=== PATIENT | male | born 1980 | race Caucasian/White ===

== ENCOUNTER 2020-04-17 18:11 | Emergency (ER) | payer SELFPAY ==
[~2020-04-17] VITALS: Ht 177 cm; Wt 80.0 kg
[2020-04-17] MEDS ORDERED: LACTATED RINGERS 1,000 ML IV ONE (18:18)
[2020-04-17] MEDS ORDERED: KETOROLAC 30 MG/ML VIAL IVP STA (18:18)
--- NOTE | 2020-04-17 18:26 | ED GU-Male ---
General Stated Complaint: R TESTICLE PAIN/SWELLING Source: patient History of Present Illness Date Seen by Provider: Apr 17, 2020 Time Seen by Provider: 18:14 Initial Comments PT ARRIVES VIA POV C/O PAIN IN RIGHT TESTICLE, RLQ AND RIGHT FLANK X 3-4 DAYS STATES MOST PAIN IS IN RIGHT FLANK AND FEELS LIKE ALOT OF PRESSURE, ALSO FEELS ALOT OF PRESSURE OVER BLADDER STATES HIS RIGHT TESTICLE HAS BEEN SWOLLEN AND HARD FOR THE LAST 4 DAYS PAIN WAXES AND WANES, BUT NOTHING WORSENS OR IMPROVES PAIN RATES PAIN 10/10 NOW C/O NAUSEA, NO VOMITING NO DIARRHEA. HAD BM TODAY--VERY CONSTIPATED/HARD NO PROBLEMS URINATING OR CHANGE IN COLOR OF URINE NO FEVER, BUT IS SHIVERING HAS NOT TAKEN ANYTHING FOR PAIN HAD SIMILAR A COUPLE OF MONTHS AGO,AND ALSO ABOUT A YEAR AGO--CLAIMS EACH TIME IT WENT AWAY WITH ANTIBIOTICS PCP: DARNELL PSYCH: [facility] Allergies and Home Medications Allergies Coded Allergies: No Known Drug Allergies (Unverified , 04/17/20) Home Medications Doxycycline Hyclate 100 Mg Tablet, 100 MG PO BID Prescribed by: REANNA PELLETIER on 04/17/201941 Ketorolac Tromethamine 10 Mg Tablet, 10 MG PO Q6H Prescribed by: REANNA PELLETIER on 04/17/201941 Ondansetron 4 Mg Tab.rapdis, 4 MG PO Q4H Prescribed by: REANNA PELLETIER on 04/17/201941 Patient Home Medication List Home Medication List Reviewed: Yes Review of Systems Review of Systems Constitutional: No fever; other (SHIVERING) Respiratory: no symptoms reported Cardiovascular: no symptoms reported Gastrointestinal: see HPI, abdominal pain, constipation; No diarrhea; nausea; No vomiting Genitourinary: denies burning, denies dysuria, denies frequency; flank pain; denies hematuria, denies pain Musculoskeletal: see HPI, back pain Skin: no symptoms reported Psychiatric/Neurological: No Symptoms Reported Endocrine: No Symptoms Reported Hematologic/Lymphatic: No Symptoms Reported Past Tuspqji-Cpfvlp-Qcoqeu Hx Past Med/Social Hx: Reviewed and Corrections made Patient Social History Alcohol Use: Regular Use (AT LEAST 1/2 PINT OF LIQUOR / WEEK) Recreational Drug Use: Yes (DAILY METH--HX OF IV USE, NOW SMOKES IT. THC USE) Drug of Choice: DAILY METH USE--HX OF IV USE, NOW SMOKES IT. THC USE Smoking Status: Current Everyday Smoker (1/2 PPD) Recent Foreign Travel: No Contact w/Someone Who Travel: No Past Medical History Surgeries: No Respiratory: Yes (NO MEDICATIONS) COPD Cardiac: No Neurological: No Genitourinary: No Gastrointestinal: No Musculoskeletal: No Endocrine: No HEENT: No Cancer: No Psychosocial: Yes (EXTENSIVE PSYCH ISSUES, SUBSTANCE ABUSE) Anxiety, Bipolar, Personality Disorder, Schizophrenia, Depression Integumentary: No Blood Disorders: No Physical Exam Vital Signs Vital Signs - First Documented 04/17/20 18:14 Temp 36.2 Pulse 99 Resp 18 B/P (MAP) 110/92 (98) Pulse Ox 99 O2 Delivery Room Air Capillary Refill : Height, Weight, BMI Height: '" Weight: lbs. oz. kg; BMI Method: General Appearance: WD/WN, no apparent distress, other (SHIVERING; DIRTY MALODOROUS) Cardiovascular: regular rate, rhythm, no murmur Respiratory: normal breath sounds, no respiratory distress, no accessory muscle use Gastrointestinal: normal bowel sounds, soft, no organomegaly, no pulsatile mass, tenderness (SUPRAPUBIC, RLQ AND RIGHT FLANK TENDERNESS--MOST TENDER IN R IGHT FLANK) Male: no hernia; No inguinal tenderness; testicular tenderness, other (RIGHT TESTICLE MODERATELY SWOLLEN, VERY FIRM AND VERY TENDER, NO ERYTHEMA OR DISCOLORATION. NO SORES/LESIONS. FEW SMALL RIGHT INGUINAL LYMPH NODES PALPABLE. ) Back: CVA tenderness (R) (VERY TENDER) Extremities: normal inspection, normal capillary refill Neurologic/Psychiatric: training project manager II-XII nml as tested, no motor/sensory deficits, alert, oriented x 3 Skin: normal color, warm/dry; No rash Progress/Results/Core Measures Suspected Sepsis SIRS Temperature: Pulse: Respiratory Rate: Laboratory Tests 04/17/20 18:20: White Blood Count 18.5H Blood Pressure / Mean: Laboratory Tests 04/17/20 18:20: Creatinine 1.15, Platelet Count 306, Total Bilirubin 0.4 Results/Orders Lab Results Laboratory Tests Test 04/17/20 18:20 04/17/20 19:11 Range/Units White Blood Count 18.5 H 4.3-11.0 10^3/uL Red Blood Count 4.79 4.30-5.52 10^6/uL Hemoglobin 15.1 13.3-17.7 g/dL Hematocrit 45 40-54 % Mean Corpuscular Volume 93 80-99 fL Mean Corpuscular Hemoglobin 32 25-34 pg Mean Corpuscular Hemoglobin Concent 34 32-36 g/dL Red Cell Distribution Width 12.8 10.0-14.5 % Platelet Count 306 130-400 10^3/uL Mean Platelet Volume 8.6 L 9.0-12.2 fL Immature Granulocyte % (Auto) 0 % Neutrophils (%) (Auto) 79 H 42-75 % Lymphocytes (%) (Auto) 12 12-44 % Monocytes (%) (Auto) 8 0-12 % Eosinophils (%) (Auto) 0 0-10 % Basophils (%) (Auto) 0 0-10 % Neutrophils # (Auto) 14.6 H 1.8-7.8 10^3/uL Lymphocytes # (Auto) 2.3 1.0-4.0 10^3/uL Monocytes # (Auto) 1.5 H 0.0-1.0 10^3/uL Eosinophils # (Auto) 0.1 0.0-0.3 10^3/uL Basophils # (Auto) 0.1 0.0-0.1 10^3/uL Immature Granulocyte # (Auto) 0.1 0.0-0.1 10^3/uL Neutrophils % (Manual) 76 % Lymphocytes % (Manual) 8 % Monocytes % (Manual) 9 % Eosinophils % (Manual) 1 % Basophils % (Manual) 0 % Band Neutrophils 2 % Reactive Lymphocytes 4 % Blood Morphology Comment NORMAL Sodium Level 136 135-145 MMOL/L Potassium Level 3.9 3.6-5.0 MMOL/L Chloride Level 99 98-107 MMOL/L Carbon Dioxide Level 24 21-32 MMOL/L Anion Gap 13 5-14 MMOL/L Blood Urea Nitrogen 12 7-18 MG/DL Creatinine 1.15 0.60-1.30 MG/DL Estimat Glomerular Filtration Rate > 60 BUN/Creatinine Ratio 10 Glucose Level 153 H 70-105 MG/DL Calcium Level 9.5 8.5-10.1 MG/DL Corrected Calcium 8.5-10.1 MG/DL Total Bilirubin 0.4 0.1-1.0 MG/DL Aspartate Amino Transf (AST/SGOT) 14 5-34 U/L Alanine Aminotransferase (ALT/SGPT) 21 0-55 U/L Alkaline Phosphatase 76 40-136 U/L Total Protein 8.4 H 6.4-8.2 GM/DL Albumin 4.6 H 3.2-4.5 GM/DL Amylase Level 32 25-125 U/L Lipase 22 8-78 U/L Serum Alcohol < 10 <10 MG/DL Urine Color YELLOW Urine Clarity CLEAR Urine pH 5.5 5-9 Urine Specific Painter >=1.030 1.016-1.022 Urine Protein 1+ H NEGATIVE Urine Glucose (UA) NEGATIVE NEGATIVE Urine Ketones NEGATIVE NEGATIVE Urine Nitrite NEGATIVE NEGATIVE Urine Bilirubin NEGATIVE NEGATIVE Urine Urobilinogen 0.2 < = 1.0 MG/DL Urine Leukocyte Esterase 1+ H NEGATIVE Urine RBC (Auto) TRACE-I NEGATIVE Urine RBC RARE /HPF Urine WBC 50-100 H /HPF Urine Squamous Epithelial Cells RARE /HPF Urine Crystals NONE /LPF Urine Bacteria FEW H /HPF Urine Casts NONE /LPF Urine Mucus MODERATE H /LPF Urine Other FEW SPERM H /HPF Urine Culture Indicated YES Urine Opiates Screen NEGATIVE NEGATIVE Urine Oxycodone Screen NEGATIVE NEGATIVE Urine Methadone Screen NEGATIVE NEGATIVE Urine Propoxyphene Screen NEGATIVE NEGATIVE Urine Barbiturates Screen NEGATIVE NEGATIVE Ur Tricyclic Antidepressants Screen NEGATIVE NEGATIVE Urine Phencyclidine Screen NEGATIVE NEGATIVE Urine Amphetamines Screen POSITIVE H NEGATIVE Urine Methamphetamines Screen POSITIVE H NEGATIVE Urine Benzodiazepines Screen NEGATIVE NEGATIVE Urine Cocaine Screen NEGATIVE NEGATIVE Urine Cannabinoids Screen POSITIVE H NEGATIVE My Orders Orders - REANNA PELLETIER DO Ed Iv/Invasive Line Start (04/17/20 18:18) Ct Abd/Pelvis Wo(Kidney Stone) (04/17/20 18:18) Acute Abd Series (04/17/20 18:18) Alcohol (04/17/20 18:18) Amylase (04/17/20 18:18) Cbc With Automated Diff (04/17/20 18:18) Comprehensive Metabolic Panel (04/17/20 18:18) Drug Screen Stat (Urine) (04/17/20 18:18) Lipase (04/17/20 18:18) Ua Culture If Indicated (04/17/20 18:18) Ed Iv/Invasive Line Start (04/17/20 18:18) Lactated Ringers (Lr 1000 Ml Iv Solution (04/17/20 18:18) Ondansetron Injection (Zofran Injectio (04/17/20 18:30) Ketorolac Injection (Toradol Injection) (04/17/20 18:18) Manual Differential (04/17/20 18:20) Urine Culture (04/17/20 19:11) Neis Simba Dna Urine Test (04/17/20 19:23) Chlamydia Trachomatis Urine (04/17/20 19:23) Ceftriaxone For Iv Use (Rocephin For I (04/17/20 19:30) Azithromycin Tablet (Zithromax Tablet) (04/17/20 19:30) Ceftriaxone For Im Use (Rocephin For Im (04/17/20 20:00) Lidocaine 1% Inj 20 Ml (Xylocaine 1% Inj (04/17/20 20:00) Medications Given in ED Current Medications Medications Dose Ordered Sig/Garret Route Start Time Stop Time Status Last Admin Dose Admin Lactated Ringer's 1,000 ml @ 0 mls/hr Q0M ONCE IV 04/17/20 18:18 04/17/20 18:21 DC 04/17/20 18:33 1,000 MLS/HR Lidocaine HCl 2.1 ml ONCE ONCE INJ 04/17/20 20:00 04/17/20 20:01 DC 04/17/20 20:04 2.1 ML Ondansetron HCl 4 mg ONCE ONCE IVP 04/17/20 18:30 04/17/20 18:31 DC 04/17/20 18:33 4 MG Vital Signs/I&O 04/17/20 04/17/20 18:14 20:08 Temp 36.2 36.2 Pulse 99 99 Resp 18 18 B/P (MAP) 110/92 (98) 110/92 (98) Pulse Ox 99 99 O2 Delivery Room Air Capillary Refill : Progress Note : Progress Note GIVEN IV FLUIDS, ZOFRAN AND TORADOL WITH SIGNIFICANT IMPROVEMENT IN SYMPTOMS NO ULTRASOUND AVAILABLE HERE AT THIS TIME. STRONGLY ADVISED TRANSFER TO ANOTHER FACILITY FOR ULTRASOUND, AND PT REFUSES. ADVISED HIM OF RISK OF TORSION AND COMPLICATIONS RELATED TO THAT. PT STILL REFUSES TRANSFER FOR ULTRASOUND Diagnostic Imaging Comments CT ABDOMEN/PELVIS--PER RADIOLOGIST REPORT AT 1922 FINDINGS: The lung bases are clear. The heart is normal in size. The liver demonstrates no focal lesions. The spleen appears normal. The pancreas is unremarkable. The adrenal glands appear normal. The kidneys demonstrate no hydronephrosis or calculi. No calculi are seen along the ureters, bilaterally. The bladder appears normal. The appendix is normal. There is moderate stool throughout the colon. No distended loops of small bowel are seen to suggest obstruction. No free fluid or free air is seen. There is mild fluid distention of the stomach. No acute osseous abnormality is seen. There appears to be mild edema in the scrotal wall. IMPRESSION: 1. No renal calculi or hydronephrosis. 2. Mild edema in the scrotal wall. ABDOMEN XRAYS--PER RADIOLOGIST REPORT AT 192 IMPRESSION: No bowel obstruction or large collection of free air. No acute pulmonary abnormality seen. Reviewed: Reviewed by Me Departure Communication (Admissions) 1929--SPOKE WITH DR. REYES, THEY WILL SEE PT IN AM AND DO ULTRASOUND AT THAT TIME. Impression Primary Impression: Urinary tract infection Additional Impressions: RIGHT TESTICLAR PAIN AND SWELLING Right flank pain Illicit drug use Disposition: HOME, SELF-CARE Condition: Improved Departure-Patient Inst. Referrals: JELENA REYES MD NO,LOCAL PHYSICIAN (PCP) Primary Care Physician Patient Instructions: Epididymitis (DC), Flank Pain (DC), Testicular Torsion, Adult, Urinary Tract Infection, Adult (DC) Add. Discharge Instructions: LOTS OF CLEAR LIQUIDS FOLLOW UP WITH [facility] FIRST THING IN THE MORNING FOR FURTHER CARE RETURN TO ER IF SYMPTOMS WORSEN Scripts Ketorolac Tromethamine (Ketorolac Tromethamine) 10 Mg Tablet 10 MG PO Q6H for Pain, #15 TAB Prov: REANNA PELLETIER DO 04/17/20 Ondansetron (Ondansetron Odt) 4 Mg Tab.rapdis 4 MG PO Q4H for Nausea/Vomiting, #10 TAB Prov: REANNA PELLETIER DO 04/17/20 Doxycycline Hyclate (Doxycycline Hyclate) 100 Mg Tablet 100 MG PO BID, #20 TAB 0 Refills Prov: REANNA PELLETIER DO 04/17/20 REANNA PELLETIER DO Apr 17, 2020 18:25
[2020-04-17] MEDS ORDERED: ONDANSETRON 4 MG/2 ML (SDV) Z0FRAN IVP ONE (18:30)
[2020-04-17 18:31] LABS: BASOPHILS # (AUTO) 0.1 10^3/uL (0.0-0.1); BASOPHILS % (AUTO) 0 % (0-10); EOSINOPHILS # (AUTO) 0.1 10^3/uL (0.0-0.3); EOSINOPHILS % (AUTO) 0 % (0-10); HEMATOCRIT 45 % (40-54); HEMOGLOBIN 15.1 g/dL (13.3-17.7); LYMPHOCYTES # (AUTO) 2.3 10^3/uL (1.0-4.0); LYMPHOCYTES % (AUTO) 12 % (12-44); MEAN CORPUSCULAR HEMOGLOBIN 32 pg (25-34); MEAN CORPUSCULAR HGB CONC 34 g/dL (32-36); MEAN CORPUSCULAR VOLUME 93 fL (80-99); MEAN PLATELET VOLUME 8.6 fL (9.0-12.2); MONOCYTES # (AUTO) 1.5 10^3/uL (0.0-1.0); MONOCYTES % (AUTO) 8 % (0-12); NEUTROPHILS # (AUTO) 14.6 10^3/uL (1.8-7.8); NEUTROPHILS % (AUTO) 79 % (42-75); PLATELET COUNT 306 10^3/uL (130-400); WHITE BLOOD COUNT 18.5 10^3/uL (4.3-11.0)
[2020-04-17 18:44] LABS: ALBUMIN 4.6 GM/DL (3.2-4.5); CHLORIDE 99 MMOL/L (98-107); POTASSIUM 3.9 MMOL/L (3.6-5.0); SODIUM 136 MMOL/L (135-145)
[2020-04-17 18:45] LABS: AMYLASE 32 U/L (25-125); CALCIUM 9.5 MG/DL (8.5-10.1)
[2020-04-17 18:46] LABS: GLUCOSE 153 MG/DL (70-105); TOTAL PROTEIN 8.4 GM/DL (6.4-8.2)
[2020-04-17 18:47] LABS: CARBON DIOXIDE 24 MMOL/L (21-32)
[2020-04-17 18:48] LABS: BAND NEUTROPHILS 2 %; BASOPHILS % (MANUAL) 0 %; BILIRUBIN,TOTAL 0.4 MG/DL (0.1-1.0); EOSINOPHILS % (MANUAL) 1 %; LYMPHOCYTES % (MANUAL) 8 %; MONOCYTES % (MANUAL) 9 %; NEUTROPHILS % (MANUAL) 76 %; RBC MORPH NORMAL; REACTIVE LYMPHOCYTES 4 %
[2020-04-17 18:50] LABS: ALKALINE PHOSPHATASE 76 U/L (40-136); CREATININE SERUM 1.15 MG/DL (0.60-1.30); GFR ESTIMATED > 60
[2020-04-17 18:51] LABS: BUN/CREATININE RATIO 10
[2020-04-17 18:53] LABS: ALANINE AMINOTRANSFERASE 21 U/L (0-55)
[2020-04-17 18:54] LABS: LIPASE 22 U/L (8-78)
--- NOTE | 2020-04-17 19:00 | NUR ---
Report from FREDDY Liu.
--- NOTE | 2020-04-17 19:06 | Diagnostic Imaging Report ---
HISTORY: Testicular swelling and abdominal pain. TECHNIQUE: Frontal view of the chest. Upright and supine frontal views of the abdomen. COMPARISON: None. FINDINGS: Lung volumes are normal. No focal consolidation is seen. There is no pleural effusion or pneumothorax. The cardiac silhouette is normal in size and contour. No distended loops of bowel are seen. There is no large collection of free air. No acute osseous abnormality is seen. IMPRESSION: No bowel obstruction or large collection of free air. No acute pulmonary abnormality seen. Dictated by: Dictated on workstation # [id number]
--- NOTE | 2020-04-17 19:08 | Diagnostic Imaging Report ---
PROCEDURE: CT urinary tract, rule out kidney stone. TECHNIQUE: Multiple contiguous axial images were obtained through the abdomen and pelvis without the use of intravenous contrast. Auto Exposure Controls were utilized during the CT exam to meet ALARA standards for radiation dose reduction. INDICATION: Flank pain, kidney stone, testicular swelling. COMPARISON: None. FINDINGS: The lung bases are clear. The heart is normal in size. The liver demonstrates no focal lesions. The spleen appears normal. The pancreas is unremarkable. The adrenal glands appear normal. The kidneys demonstrate no hydronephrosis or calculi. No calculi are seen along the ureters, bilaterally. The bladder appears normal. The appendix is normal. There is moderate stool throughout the colon. No distended loops of small bowel are seen to suggest obstruction. No free fluid or free air is seen. There is mild fluid distention of the stomach. No acute osseous abnormality is seen. There appears to be mild edema in the scrotal wall. IMPRESSION: 1. No renal calculi or hydronephrosis. 2. Mild edema in the scrotal wall. Dictated by: Dictated on workstation # [id number]
[2020-04-17 19:16] LABS: BILIRUBIN,URINE NEGATIVE (NEGATIVE); CLARITY,URINE CLEAR; GLUCOSE, URINE (UA) NEGATIVE (NEGATIVE); KETONES,URINE NEGATIVE (NEGATIVE); LEUKOCYTE ESTERASE ,URINE 1+ (NEGATIVE); NITRITE,URINE NEGATIVE (NEGATIVE); PH,URINE 5.5 (5-9); PROTEIN,URINE 1+ (NEGATIVE)
[2020-04-17 19:22] LABS: BACTERIA,URINE FEW /HPF; COLOR,URINE YELLOW; RBC,URINE RARE /HPF; SQUAMOUS EPITHELIAL CELL,UR RARE /HPF; WBC,URINE 50-100 /HPF
[2020-04-17 19:23] LABS: URINE OTHER FEW SPERM /HPF
[2020-04-17 19:29] LABS: AMPHETAMINE SCREEN, URINE POSITIVE (NEGATIVE); BARBITURATE SCREEN URINE NEGATIVE (NEGATIVE); BENZODIAZEPINES SCREEN URINE NEGATIVE (NEGATIVE); CANNABINOID SCREEN, URINE POSITIVE (NEGATIVE); COCAINE SCREEN URINE NEGATIVE (NEGATIVE); METHADONE STAT NEGATIVE (NEGATIVE); METHAMPHETAMINE SCREEN URINE S POSITIVE (NEGATIVE); OPIATE SCREEN URINE NEGATIVE (NEGATIVE); OXYCODONE STAT NEGATIVE (NEGATIVE); PROPOXYPHENE STAT NEGATIVE (NEGATIVE); TRICYCLIC ANTIDEPRESSANTS SCRE NEGATIVE (NEGATIVE)
[2020-04-17] MEDS ORDERED: cefTRIAXone FOR IV USE 1,000 MG in WATER (STERILE) FOR INJECTION 10 ML IV ONE (19:30)
[2020-04-17] MEDS ORDERED: AZITHROMYCIN 250 MG TAB (ZITHROMAX) PO STA (19:30)
--- NOTE | 2020-04-17 19:40 | NUR ---
IV started prior to my care found not patent; no IV fluids infused and upon attempted flushing it was noted to infiltrate.
[2020-04-17] MEDS ORDERED: ONDA4TAB11 PO (19:42)
[2020-04-17] MEDS ORDERED: KETO10TA PO (19:42)
[2020-04-17] MEDS ORDERED: DOXY100T2 PO (19:42)
[2020-04-17] MEDS ORDERED: LIDOCAINE 1% INJ 20 ML 20 ML VIAL INJ ONE (20:00)
[2020-04-17] MEDS ORDERED: cefTRIAXone 1,000 MG/2.86 ml vial (IM ONLY) IM SCH (20:00)
[2020-04-17 20:08] VITALS: BP 110/92
== END 2020-04-17 20:09 | disposition home or self-care (01) ==
LOC: EDUNIT# 18:11 → ER 18:11
DX: N39.0 Urinary tract infection, site not specified (principal); N50.811 Right testicular pain; F15.90 Other stimulant use, unspecified, uncomplicated; F17.200 Nicotine dependence, unspecified, uncomplicated
CPT/HCPCS: 74022; 74176; 80053; 80306; 81000; 82150; 83690; 85007; 85027; 87088; 87491; 87591; G0480; 36415; 80320; 87077

== ENCOUNTER 2020-12-03 19:44 | Emergency (ER) | payer SELFPAY ==
[~2020-12-03] VITALS: Ht 180.3 cm; Wt 100.0 kg
[~2020-12-03 19:44] MED LIST: DOXY100T2 PO; KETO10TA PO; ONDA4TAB11 PO
--- NOTE | 2020-12-03 20:29 | ED GI ---
General Chief Complaint: Abdominal/GI Problems Stated Complaint: ABD PAIN Nursing Triage Note: pt states sharp rlq abd pain for one hour Sepsis Screen: No Definite Risk Source of Information: Patient Exam Limitations: No Limitations History of Present Illness Date Seen by Provider: December 03, 2020 Time Seen by Provider: 20:28 Initial Comments To ER with sudden onset right lower quadrant abdominal pain that began 1 hour ago. He states that he had some very cloudy urine earlier today. No nausea or vomiting. Pain is very intense. He denies any testicular pain. He does have a history of his testicle "swelling up" but it is not tender or swollen today. Timing/Duration: 1 Hour Severity/Quality: Moderate Location: RLQ Radiation: No Radiation Activities at Onset: None Allergies and Home Medications Allergies Coded Allergies: No Known Drug Allergies (Unverified , 04/17/20) Home Medications Cefuroxime Axetil 500 Mg Tablet, 500 MG PO BID Prescribed by: HAZEL ARCOS on 12/03/202049 Doxycycline Hyclate 100 Mg Tablet, 100 MG PO BID Prescribed by: REANNA PELLETIER on 04/17/201941 Hydrocodone/Acetaminophen 1 Each Tablet, 1 TAB PO Q4H PRN for PAIN-MODERATE (5- 7) Prescribed by: HAZEL ARCOS on 12/03/202050 Ketorolac Tromethamine 10 Mg Tablet, 10 MG PO Q6H Prescribed by: REANNA PELLETIER on 04/17/201941 Ketorolac Tromethamine 10 Mg Tablet, 10 MG PO TID PRN for PAIN-MODERATE (5-7) Prescribed by: HAZEL ARCOS on 12/03/202049 Ondansetron 4 Mg Tab.rapdis, 4 MG PO Q4H Prescribed by: REANNA PELLETIER on 04/17/201941 Patient Home Medication List Home Medication List Reviewed: Yes Review of Systems Review of Systems Constitutional: see HPI EENTM: No Symptoms Reported Respiratory: No Symptoms Reported Cardiovascular: No Symptoms Reported Gastrointestinal: See HPI, Abdominal Pain Genitourinary: See HPI Musculoskeletal: no symptoms reported Skin: no symptoms reported Psychiatric/Neurological: No Symptoms Reported Endocrine: No Symptoms Reported Hematologic/Lymphatic: No Symptoms Reported Past Fqoofdl-Vhcgcr-Sfwcpj Hx Patient Social History Alcohol Use: Occasionally Uses Drug of Choice: marijuana, meth Smoking Status: Current Everyday Smoker Recent Infectious Disease Expo: No Recent Hopitalizations: No Seasonal Allergies Seasonal Allergies: No Past Medical History Surgeries: No Respiratory: Yes (NO MEDICATIONS) COPD Cardiac: No Neurological: No Genitourinary: No Gastrointestinal: No Musculoskeletal: No Endocrine: No HEENT: No Cancer: No Psychosocial: Yes (EXTENSIVE PSYCH ISSUES, SUBSTANCE ABUSE) Anxiety, Bipolar, Personality Disorder, Schizophrenia, Depression Integumentary: No Blood Disorders: No Physical Exam Vital Signs Vital Signs - First Documented 12/03/20 20:10 Temp 35.6 Pulse 54 Resp 18 B/P (MAP) 181/110 (133) Pulse Ox 100 Capillary Refill : Less Than 3 Seconds Height/Weight/BMI Height: '" Weight: lbs. oz. kg; 30.00 BMI Method: General Appearance: WD/WN, no apparent distress Respiratory: normal breath sounds, no respiratory distress, no accessory muscle use Cardiovascular: regular rate, rhythm, no murmur Gastrointestinal: normal bowel sounds, soft, tenderness Extremities: normal range of motion, non-tender Neurologic/Psychiatric: alert, normal mood/affect, oriented x 3 Skin: normal color, warm/dry Progress/Results/Core Measures Results/Orders Lab Results Laboratory Tests Test 12/03/20 20:27 Range/Units White Blood Count 9.3 4.3-11.0 10^3/uL Red Blood Count 4.64 4.30-5.52 10^6/uL Hemoglobin 14.3 13.3-17.7 g/dL Hematocrit 43 40-54 % Mean Corpuscular Volume 92 80-99 fL Mean Corpuscular Hemoglobin 31 25-34 pg Mean Corpuscular Hemoglobin Concent 34 32-36 g/dL Red Cell Distribution Width 12.7 10.0-14.5 % Platelet Count 300 130-400 10^3/uL Mean Platelet Volume 8.5 L 9.0-12.2 fL Immature Granulocyte % (Auto) 0 % Neutrophils (%) (Auto) 64 42-75 % Lymphocytes (%) (Auto) 28 12-44 % Monocytes (%) (Auto) 6 0-12 % Eosinophils (%) (Auto) 1 0-10 % Basophils (%) (Auto) 1 0-10 % Neutrophils # (Auto) 6.0 1.8-7.8 10^3/uL Lymphocytes # (Auto) 2.6 1.0-4.0 10^3/uL Monocytes # (Auto) 0.6 0.0-1.0 10^3/uL Eosinophils # (Auto) 0.1 0.0-0.3 10^3/uL Basophils # (Auto) 0.1 0.0-0.1 10^3/uL Immature Granulocyte # (Auto) 0.0 0.0-0.1 10^3/uL Sodium Level 137 135-145 MMOL/L Potassium Level 4.0 3.6-5.0 MMOL/L Chloride Level 102 98-107 MMOL/L Carbon Dioxide Level 23 21-32 MMOL/L Anion Gap 12 5-14 MMOL/L Blood Urea Nitrogen 12 7-18 MG/DL Creatinine 1.24 0.60-1.30 MG/DL Estimat Glomerular Filtration Rate > 60 BUN/Creatinine Ratio 10 Glucose Level 133 H 70-105 MG/DL Calcium Level 9.9 8.5-10.1 MG/DL My Orders Orders - HAZEL ARCOS APRN Ua Culture If Indicated (12/03/20 20:20) Cbc With Automated Diff (12/03/20 20:20) Basic Metabolic Panel (12/03/20 20:20) Ed Iv/Invasive Line Start (12/03/20 20:20) Ct Abd/Pelvis Wo(Kidney Stone) (12/03/20 20:20) Ns Iv 1000 Ml (Sodium Chloride 0.9%) (12/03/20 20:30) Ketorolac Injection (Toradol Injection) (12/03/20 20:30) Tamsulosin Capsule (Flomax Capsule) (12/03/20 21:00) Ceftriaxone For Iv Use (Rocephin For I (12/03/20 21:00) Rx-Hydrocodone/Apap 5-325 Mg (Rx-Vicodin (12/03/20 21:00) Medications Given in ED Current Medications Medications Dose Ordered Sig/Garret Route Start Time Stop Time Status Last Admin Dose Admin Ketorolac Tromethamine 15 mg ONCE ONCE IVP 12/03/20 20:30 12/03/20 20:31 DC 12/03/20 20:45 15 MG Vital Signs/I&O 12/03/20 20:10 Temp 35.6 Pulse 54 Resp 18 B/P (MAP) 181/110 (133) Pulse Ox 100 Blood Pressure Mean: 133 Departure Communication (Admissions) NAME: DARRELL WALSH MED REC#: [id number] PT STATUS: REG ER : 1980 PHYSICIAN: HAZEL ARCOS APRN ADMIT DATE: 12/03/20/ER Draft Date of Exam:12/03/20 CT ABD/PELVIS WO(KIDNEY STONE) PROCEDURE: CT urinary tract, rule out kidney stone. TECHNIQUE: Multiple contiguous axial images were obtained through the abdomen and pelvis without the use of intravenous contrast. Auto Exposure Controls were utilized during the CT exam to meet ALARA standards for radiation dose reduction. INDICATION: Lower abdominal pain. Right lower quadrant pain times one hour. CORRELATION STUDY: CT abdomen and pelvis 04/17/2020 FINDINGS: LOWER THORAX: Clear. LIVER: Unremarkable. GALLBLADDER: Present and unremarkable. No bile duct dilatation. SPLEEN: Unremarkable. Two small splenules are present. PANCREAS: Unremarkable. ADRENAL GLANDS: Slight nodularity left adrenal gland body. Otherwise unremarkable. KIDNEYS: Findings are positive for a punctate, approximately 1 mm stone in the distal right ureter, approximately 18 mm proximal to the UVJ. Very slight prominent appearance about the right collecting system. ABDOMINAL AORTA: Unremarkable, nonaneurysmal. GASTROINTESTINAL TRACT: No obstruction or inflammation. Normal appendix. URINARY BLADDER: Decompressed. REPRODUCTIVE: Unremarkable. OSSEOUS STRUCTURES: No acute abnormality. OTHER: None. IMPRESSION: 1. Punctate, 1 mm stone distal right ureter result in very mild right-sided obstruction. Dictated on workstation # [id number] Dict: 12/03/202049 Trans: 12/03/202100 [facility] [phone] Interpreted by: ANUPAM PENA DO Electronically signed by: Impression Primary Impression: Ureteral calculus, right Disposition: 01 HOME, SELF-CARE Condition: Stable Departure-Patient Inst. Decision time for Depature: 20:49 Referrals: NO,LOCAL PHYSICIAN (PCP) Primary Care Physician SUSIE NDIAYE MD Patient Instructions: Kidney Stones (DC) Add. Discharge Instructions: 1. Medication as directed. Increase your fluid intake. Return to ER for any worsening. All discharge instructions reviewed with patient and/or family. Voiced understanding. Scripts Cefuroxime Axetil (Cefuroxime) 500 Mg Tablet 500 MG PO BID, #10 TAB Prov: HAZEL ARCOS APRN 12/03/20 Hydrocodone/Acetaminophen (Hydrocodone-Acetamin 5-325 mg) 1 Each Tablet 1 TAB PO Q4H PRN for PAIN-MODERATE (5-7), #14 TAB Prov: HAZEL ARCOS APRN 12/03/20 Ketorolac Tromethamine (Ketorolac Tromethamine) 10 Mg Tablet 10 MG PO TID PRN for PAIN-MODERATE (5-7), #10 TAB Prov: HAZEL ARCOS APRN 12/03/20 HAZEL ARCOS APRN December 03, 2020 20:29
[2020-12-03] MEDS ORDERED: NS IV 1000 ML 1,000 ML IV SCH (20:30)
[2020-12-03] MEDS ORDERED: KETOROLAC 30 MG/ML VIAL IVP ONE (20:30)
[2020-12-03 20:33] LABS: BASOPHILS # (AUTO) 0.1 10^3/uL (0.0-0.1); BASOPHILS % (AUTO) 1 % (0-10); EOSINOPHILS # (AUTO) 0.1 10^3/uL (0.0-0.3); EOSINOPHILS % (AUTO) 1 % (0-10); HEMATOCRIT 43 % (40-54); HEMOGLOBIN 14.3 g/dL (13.3-17.7); LYMPHOCYTES # (AUTO) 2.6 10^3/uL (1.0-4.0); LYMPHOCYTES % (AUTO) 28 % (12-44); MEAN CORPUSCULAR HEMOGLOBIN 31 pg (25-34); MEAN CORPUSCULAR HGB CONC 34 g/dL (32-36); MEAN CORPUSCULAR VOLUME 92 fL (80-99); MEAN PLATELET VOLUME 8.5 fL (9.0-12.2); MONOCYTES # (AUTO) 0.6 10^3/uL (0.0-1.0); MONOCYTES % (AUTO) 6 % (0-12); NEUTROPHILS % (AUTO) 64 % (42-75); PLATELET COUNT 300 10^3/uL (130-400); WHITE BLOOD COUNT 9.3 10^3/uL (4.3-11.0)
[2020-12-03 20:49] LABS: BUN/CREATININE RATIO 10; CALCIUM 9.9 MG/DL (8.5-10.1); CARBON DIOXIDE 23 MMOL/L (21-32); CHLORIDE 102 MMOL/L (98-107); CREATININE SERUM 1.24 MG/DL (0.60-1.30); GFR ESTIMATED > 60; GLUCOSE 133 MG/DL (70-105); SODIUM 137 MMOL/L (135-145)
[2020-12-03] MEDS ORDERED: KETO10TA PO (20:50)
[2020-12-03] MEDS ORDERED: CEFU500T63 PO (20:50)
[2020-12-03] MEDS ORDERED: ACHD5005 PO (20:50)
[2020-12-03] MEDS ORDERED: TAMSULOSIN 0.4 MG (FLOMAX) CAP PO SCH (21:00)
[2020-12-03] MEDS ORDERED: cefTRIAXone FOR IV USE 1,000 MG in WATER (STERILE) FOR INJECTION 10 ML IV ONE (21:00)
--- NOTE | 2020-12-03 21:01 | Diagnostic Imaging Report ---
PROCEDURE: CT urinary tract, rule out kidney stone. TECHNIQUE: Multiple contiguous axial images were obtained through the abdomen and pelvis without the use of intravenous contrast. Auto Exposure Controls were utilized during the CT exam to meet ALARA standards for radiation dose reduction. INDICATION: Lower abdominal pain. Right lower quadrant pain times one hour. CORRELATION STUDY: CT abdomen and pelvis 04/17/2020 FINDINGS: LOWER THORAX: Clear. LIVER: Unremarkable. GALLBLADDER: Present and unremarkable. No bile duct dilatation. SPLEEN: Unremarkable. Two small splenules are present. PANCREAS: Unremarkable. ADRENAL GLANDS: Slight nodularity left adrenal gland body. Otherwise unremarkable. KIDNEYS: Findings are positive for a punctate, approximately 1 mm stone in the distal right ureter, approximately 18 mm proximal to the UVJ. Very slight prominent appearance about the right collecting system. ABDOMINAL AORTA: Unremarkable, nonaneurysmal. GASTROINTESTINAL TRACT: No obstruction or inflammation. Normal appendix. URINARY BLADDER: Decompressed. REPRODUCTIVE: Unremarkable. OSSEOUS STRUCTURES: No acute abnormality. OTHER: None. IMPRESSION: 1. Punctate, 1 mm stone distal right ureter result in very mild right-sided obstruction. Dictated by: Dictated on workstation # [id number]
[2020-12-03 21:39] LABS: BILIRUBIN,URINE NEGATIVE (NEGATIVE); CLARITY,URINE CLEAR; COLOR,URINE YELLOW; GLUCOSE, URINE (UA) NEGATIVE (NEGATIVE); KETONES,URINE TRACE (NEGATIVE); LEUKOCYTE ESTERASE ,URINE NEGATIVE (NEGATIVE); NITRITE,URINE NEGATIVE (NEGATIVE); PH,URINE 5.5 (5-9); PROTEIN,URINE NEGATIVE (NEGATIVE)
[2020-12-03 21:45] LABS: BACTERIA,URINE TRACE /HPF; CALCIUM OXALATE CRYSTALS,UR FEW /LPF; SQUAMOUS EPITHELIAL CELL,UR RARE /HPF; WBC,URINE RARE /HPF
[2020-12-03 21:55] VITALS: BP 165/90
== END 2020-12-03 21:55 | disposition home or self-care (01) ==
LOC: EDUNIT# 19:44 → ER 19:46
DX: N20.1 Calculus of ureter (principal); J44.9 Chronic obstructive pulmonary disease, unspecified; F17.200 Nicotine dependence, unspecified, uncomplicated
CPT/HCPCS: 36415; 74176; 80048; 81000; 85025

== ENCOUNTER 2020-12-06 09:49 | Emergency (ER) | payer SELFPAY ==
[~2020-12-06] VITALS: Ht 180 cm; Wt 100.0 kg
[~2020-12-06 09:49] MED LIST changes: +ACHD5005 PO; +CEFU500T63 PO
--- NOTE | 2020-12-06 10:10 | ED Abdominal Pain ---
General Stated Complaint: BACK PAIN POSSIBLE KIDNEY STONE Source of Information: Patient Exam Limitations: No Limitations History of Present Illness Date Seen by Provider: December 06, 2020 Time Seen by Provider: 10:24 Initial Comments This is a well appearing 40 yo male who presented to the ER with c/o right flank pain. States he was evaluated and treated for a right 1 cm kidney stone on 12/03/2020. States he was given hydrocodone for pain however his pain has increased through the morning despite use of hydrocodone. Currently reports 8/10 right flank achy/crampy pain that waxes and wanes. He also has associated nausea when pain is at its worst. States that he is able to urinate without difficulty and his urine is a light yellow color. He is still tolerating oral fluids without difficulty. No fever, chills, vomiting. After reviewing his prior visit he was noted to have a 1 mm right kidney stone versus his reported 1 cm stone. Allergies and Home Medications Allergies Coded Allergies: No Known Drug Allergies (Unverified , 04/17/20) Home Medications Cefuroxime Axetil 500 Mg Tablet, 500 MG PO BID Prescribed by: HAZEL ARCOS on 12/03/202049 Doxycycline Hyclate 100 Mg Tablet, 100 MG PO BID Prescribed by: REANNA PELLETIER on 04/17/201941 Hydrocodone/Acetaminophen 1 Each Tablet, 1 TAB PO Q4H PRN for PAIN-MODERATE (5- 7) Prescribed by: HAZEL ARCOS on 12/03/202050 Ketorolac Tromethamine 10 Mg Tablet, 10 MG PO Q6H Prescribed by: REANNA PELLETIER on 04/17/201941 Ketorolac Tromethamine 10 Mg Tablet, 10 MG PO TID PRN for PAIN-MODERATE (5-7) Prescribed by: HAZEL ARCOS on 12/03/202049 Ondansetron 4 Mg Tab.rapdis, 4 MG PO Q4H Prescribed by: REANNA PELLETIER on 04/17/201941 Patient Home Medication List Home Medication List Reviewed: Yes Review of Systems Review of Systems Constitutional: no symptoms reported EENTM: No Symptoms Reported Respiratory: No Symptoms Reported Cardiovascular: No Symptoms Reported Gastrointestinal: See HPI Genitourinary: See HPI Musculoskeletal: other (right flank pain ) Skin: no symptoms reported Psychiatric/Neurological: No Symptoms Reported Past Ogsprlq-Teostu-Pllnui Hx Patient Social History Drug of Choice: marijuana, meth Recent Hopitalizations: No Seasonal Allergies Seasonal Allergies: No Past Medical History Surgeries: No Respiratory: Yes (NO MEDICATIONS) COPD Cardiac: No Neurological: No Genitourinary: No Gastrointestinal: No Musculoskeletal: No Endocrine: No HEENT: No Cancer: No Psychosocial: Yes (EXTENSIVE PSYCH ISSUES, SUBSTANCE ABUSE) Anxiety, Bipolar, Personality Disorder, Schizophrenia, Depression Integumentary: No Blood Disorders: No Physical Exam Vital Signs Vital Signs - First Documented 12/06/20 10:22 Temp 36.4 Pulse 45 Resp 24 B/P (MAP) 148/77 (100) Capillary Refill : Height/Weight/BMI Height: '" Weight: lbs. oz. kg; 30.00 BMI Method: General Appearance: WD/WN, no apparent distress HEENT: PERRL/EOMI, pharynx normal Neck: full range of motion, normal inspection Respiratory: lungs clear, normal breath sounds Cardiovascular: regular rate, rhythm, no murmur Gastrointestinal: normal bowel sounds, non tender, soft Extremities: normal range of motion, normal inspection Back: normal inspection, CVA tenderness (R); No vertebral tenderness Neurologic/Psychiatric: alert, normal mood/affect, oriented x 3 Skin: normal color, warm/dry Progress/Results/Core Measures Results/Orders Lab Results Laboratory Tests Test 12/06/20 10:48 Range/Units Urine Color YELLOW Urine Clarity SL CLOUDY Urine pH 6.0 5-9 Urine Specific [place] >=1.030 1.016-1.022 Urine Protein TRACE H NEGATIVE Urine Glucose (UA) NEGATIVE NEGATIVE Urine Ketones NEGATIVE NEGATIVE Urine Nitrite NEGATIVE NEGATIVE Urine Bilirubin NEGATIVE NEGATIVE Urine Urobilinogen 0.2 < = 1.0 MG/DL Urine Leukocyte Esterase NEGATIVE NEGATIVE Urine RBC (Auto) 1+ H NEGATIVE Urine RBC 10-25 H /HPF Urine WBC RARE /HPF Urine Squamous Epithelial Cells 0-2 /HPF Urine Crystals PRESENT H /LPF Urine Amorphous Sediment FEW RADHA URATES H /LPF Urine Bacteria NEGATIVE /HPF Urine Casts NONE /LPF Urine Mucus SMALL H /LPF Urine Culture Indicated NO My Orders Orders - MARITZA CRESPO [employer]TER Ua Culture If Indicated (12/06/20 09:52) Abdomen/Kub 1view (12/06/20 10:08) Ed Iv/Invasive Line Start (12/06/20 10:08) Ketorolac Injection (Toradol Injection) (12/06/20 10:15) Ns Iv 1000 Ml (Sodium Chloride 0.9%) (12/06/20 10:15) Ondansetron Injection (Zofran Injectio (12/06/20 10:15) Medications Given in ED Vital Signs/I&O 12/06/20 10:22 Temp 36.4 Pulse 45 Resp 24 B/P (MAP) 148/77 (100) Progress Progress Note : Progress Note No acute distress, Toradol 30 mg IV push for pain, Zofran 4mg IVP, 1 L normal saline IV fluids, and KUB. He is currently completing a course of antibiotics and has no systemic symptoms, deferred labs as his baseline on 12/03 were unremarkable and he is urinating without difficulty. KUB unable to visualize stone due to size. He reports feeling much improved after receiving Toradol and Zofran. Discussed that he needs to continue to drink plenty of fluids and he can always add lemon to his water. Additionally instructed him to continue to strain his urine. He needs to continue his antibiotics as previously directed, and his hydrocodone and Zofran as needed for pain/ nausea. Reviewed discharge plan of care and he is agreeable with plan. Diagnostic Imaging Diagonstic Imaging: Xray Plain Films/CT/US/NM/MRI: abdomen Comments [facility] [place], [place] NAME: DARRELL WALSH [facility] REC#: [id number] PT STATUS: DEP ER : 1980 PHYSICIAN: MARITZA CRESPO APRN ADMIT DATE: 12/06/20/ER Signed Date of Exam:12/06/20 ABDOMEN/KUB 1VIEW INDICATION: Flank pain. Comparison with CT scan 12/03/2020. FINDINGS: The tiny calcifications noted on CT scan in the distal right ureter is too small to be visualized by routine x-ray. Calcification is noted in the lower pelvis on the right is a phlebolith demonstrated on previous CT scan. No calcifications are seen overlying the kidneys. IMPRESSION: 1. No calculi demonstrated. 2. Phlebolith noted in the pelvis on the right. Dictated by: Dictated on workstation # [id number] Dict: 12/06/20 1037 Trans: 12/06/20 1702 [id number] Interpreted by: MADISON VARGAS MD Electronically signed by: MADISON VARGAS MD 12/06/20 1702 Reviewed: Reviewed by Me Departure Impression Primary Impression: Kidney stone Disposition: HOME, SELF-CARE Condition: Improved Departure-Patient Inst. Decision time for Depature: 11:07 Referrals: NO,LOCAL PHYSICIAN (PCP/Family) Primary Care Physician Patient Instructions: Kidney Stones in Adults Add. Discharge Instructions: Plan: 1. Continue to drink lots of fluids. You can add lemon to your water to help your stone pass. 2. Take Hydrocodone as directed. May take Ibuprofen 600mg by mouth every 6 hours as needed for pain. Take with food. 3. Strain your urine as previously directed. 4. Return for any new or worsening symptoms. MARITZA CRESPO [employer] S[employer]TER December 06, 2020 10:10
[2020-12-06] MEDS ORDERED: ONDANSETRON 4 MG/2 ML (SDV) Z0FRAN IVP ONE (10:15)
[2020-12-06] MEDS ORDERED: KETOROLAC 30 MG/ML VIAL IVP ONE (10:15)
[2020-12-06] MEDS ORDERED: NS IV 1000 ML 1,000 ML IV ONE (10:15)
[2020-12-06 10:22] VITALS: BP 148/77
--- NOTE | 2020-12-06 10:45 | Diagnostic Imaging Report ---
INDICATION: Flank pain. Comparison with CT scan 12/03/2020. FINDINGS: The tiny calcifications noted on CT scan in the distal right ureter is too small to be visualized by routine x-ray. Calcification is noted in the lower pelvis on the right is a phlebolith demonstrated on previous CT scan. No calcifications are seen overlying the kidneys. IMPRESSION: 1. No calculi demonstrated. 2. Phlebolith noted in the pelvis on the right. Dictated by: Dictated on workstation # [id number]
[2020-12-06 10:54] LABS: BILIRUBIN,URINE NEGATIVE (NEGATIVE); CLARITY,URINE SL CLOUDY; COLOR,URINE YELLOW; GLUCOSE, URINE (UA) NEGATIVE (NEGATIVE); KETONES,URINE NEGATIVE (NEGATIVE); LEUKOCYTE ESTERASE ,URINE NEGATIVE (NEGATIVE); NITRITE,URINE NEGATIVE (NEGATIVE); PROTEIN,URINE TRACE (NEGATIVE)
[2020-12-06 11:02] LABS: AMORPHOUS SEDIMENT,UR FEW AMOR URATES /LPF; BACTERIA,URINE NEGATIVE /HPF; SQUAMOUS EPITHELIAL CELL,UR 0-2 /HPF; WBC,URINE RARE /HPF
== END 2020-12-06 11:15 | disposition home or self-care (01) ==
LOC: EDUNIT# 09:49 → ER 09:51
DX: N20.0 Calculus of kidney (principal); J44.9 Chronic obstructive pulmonary disease, unspecified
CPT/HCPCS: 74018; 81000

== ENCOUNTER 2021-12-27 04:37 | Emergency (ER) | payer SELFPAY ==
--- NOTE | 2021-12-27 04:53 | ED Abdominal Pain ---
General Stated Complaint: KIDNEY PAIN Source of Information: Patient Exam Limitations: No Limitations (GILLES ERNST MD) History of Present Illness Date Seen by Provider: Dec 27, 2021 Time Seen by Provider: 04:30 Initial Comments Patient is a 41-year-old male who presents to the emergency department today with a chief complaint of lower abdominal pain and inability to urinate. Patient states onset of symptoms around 1230. He states his brother gave him some medication he is not sure what it was. He states he has never had pain like this before. Denies any blood in his urine states he has not been able to go for several hours. Cannot recall when his last bowel movement was. No prior abdominal surgeries. Patient admits to being a former drug addict and is "working a program". States his pain is a "10". Reportedly was at [facility] earlier this evening, there was some disturbance regarding that visit and the police were called. Police followed the patient and his family here to the hospital. He is quite agitated, twitching and jerking around in the bed. He also complains of bilateral testicular pain. All other review of systems reviewed and negative except as stated. Timing/Duration: 4-6 Hours Severity/Quality: Severe Location: Generalized Abdomen Radiation: Groin (testicles) Associated Symptoms: Denies Symptoms (GILLES ERNST MD) Allergies and Home Medications Allergies Coded Allergies: No Known Drug Allergies (Unverified , 04/17/20) Patient Home Medication List Home Medication List Reviewed: Yes (GILLES ERNST MD) Cefuroxime Axetil (Cefuroxime) 500 Mg Tablet, 500 MG PO BID Prescribed by: HAZEL ARCOS on 12/03/202049 Doxycycline Hyclate (Doxycycline Hyclate) 100 Mg Tablet, 100 MG PO BID Prescribed by: REANNA PELLETIER on 04/17/201941 Hydrocodone/Acetaminophen (Hydrocodone-Acetamin 5-325 mg) 1 Each Tablet, 1 TAB PO Q4H PRN for PAIN-MODERATE (5-7) Prescribed by: HAZEL ARCOS on 12/03/202050 Ketorolac Tromethamine (Ketorolac Tromethamine) 10 Mg Tablet, 10 MG PO Q6H Prescribed by: REANNA PELLETIER on 04/17/201941 Ketorolac Tromethamine (Ketorolac Tromethamine) 10 Mg Tablet, 10 MG PO TID PRN for PAIN-MODERATE (5-7) Prescribed by: HAZEL ARCOS on 12/03/202049 Ondansetron (Ondansetron Odt) 4 Mg Tab.rapdis, 4 MG PO Q4H Prescribed by: REANNA PELLETIER on 04/17/201941 Review of Systems Review of Systems Constitutional: see HPI EENTM: No Symptoms Reported Respiratory: No Symptoms Reported Cardiovascular: No Symptoms Reported Gastrointestinal: Abdominal Pain Genitourinary: Urgency Musculoskeletal: no symptoms reported Skin: no symptoms reported Psychiatric/Neurological: Other (history of drug abuse) (GILLES ERNST MD) All Other Systems Reviewed Negative Unless Noted: Yes (GILLES ERNST MD) Past Fqkbcdg-Dmloxe-Awkezx Hx Seasonal Allergies Seasonal Allergies: No (GILLES ERNST MD) Past Medical History Surgeries: No Respiratory: Yes (NO MEDICATIONS) COPD Cardiac: No Neurological: No Genitourinary: No Gastrointestinal: No Musculoskeletal: No Endocrine: No HEENT: No Cancer: No Psychosocial: Yes (EXTENSIVE PSYCH ISSUES, SUBSTANCE ABUSE) Anxiety, Bipolar, Personality Disorder, Schizophrenia, Depression Integumentary: No Blood Disorders: No (GILLES ERNST MD) Physical Exam Vital Signs Vital Signs - First Documented 12/27/21 04:58 Pulse 43 Resp 26 B/P (MAP) 137/114 (122) Pulse Ox 100 O2 Delivery Room Air (JOVANA ARMENTA) Vital Signs Capillary Refill : (GILLES ERNST MD) Height/Weight/BMI Height: '" Weight: lbs. oz. kg; 30.00 BMI Method: General Appearance: WD/WN, moderate distress HEENT: PERRL/EOMI Neck: normal inspection Respiratory: lungs clear, normal breath sounds, no respiratory distress, no accessory muscle use Cardiovascular: regular rate, rhythm Gastrointestinal: normal bowel sounds, soft; No distended, No guarding, No rebound; tenderness (patient c/o diffuse tenderness to even light palpation of the abdomen. distractable.) Genital/Rectal: normal genital exam, other (no testicular swelling or mass. no abnormal lie.) Extremities: normal range of motion, normal inspection Back: no CVA tenderness Neurologic/Psychiatric: alert, oriented x 3, other (agitated) Skin: normal color, warm/dry (GILLES ERSNT MD) Progress/Results/Core Measures Results/Orders Lab Results Laboratory Tests Test 12/27/21 04:48 Range/Units White Blood Count 13.8 H 4.3-11.0 10^3/uL Red Blood Count 4.57 4.30-5.52 10^6/uL Hemoglobin 14.1 13.3-17.7 g/dL Hematocrit 41 40-54 % Mean Corpuscular Volume 89 80-99 fL Mean Corpuscular Hemoglobin 31 25-34 pg Mean Corpuscular Hemoglobin Concent 35 32-36 g/dL Red Cell Distribution Width 13.0 10.0-14.5 % Platelet Count 338 130-400 10^3/uL Mean Platelet Volume 9.0 9.0-12.2 fL Immature Granulocyte % (Auto) 0 % Neutrophils (%) (Auto) 68 42-75 % Lymphocytes (%) (Auto) 22 12-44 % Monocytes (%) (Auto) 8 0-12 % Eosinophils (%) (Auto) 1 0-10 % Basophils (%) (Auto) 1 0-10 % Neutrophils # (Auto) 9.4 H 1.8-7.8 10^3/uL Lymphocytes # (Auto) 3.1 1.0-4.0 10^3/uL Monocytes # (Auto) 1.1 H 0.0-1.0 10^3/uL Eosinophils # (Auto) 0.1 0.0-0.3 10^3/uL Basophils # (Auto) 0.1 0.0-0.1 10^3/uL Immature Granulocyte # (Auto) 0.1 0.0-0.1 10^3/uL Sodium Level 140 135-145 MMOL/L Potassium Level 3.3 L 3.6-5.0 MMOL/L Chloride Level 103 98-107 MMOL/L Carbon Dioxide Level 19 L 21-32 MMOL/L Anion Gap 18 H 5-14 MMOL/L Blood Urea Nitrogen 20 H 7-18 MG/DL Creatinine 1.47 H 0.60-1.30 MG/DL Estimat Glomerular Filtration Rate 61 BUN/Creatinine Ratio 14 Glucose Level 116 H 70-105 MG/DL Calcium Level 10.0 8.5-10.1 MG/DL (JOVANA ARMENTA) Medications Given in ED Current Medications Medications Dose Ordered Sig/Garret Route Start Time Stop Time Status Last Admin Dose Admin Glycopyrrolate 0.2 mg ONCE ONCE IM 12/27/21 05:00 12/27/21 05:01 DC 12/27/21 05:04 0.2 MG Ketorolac Tromethamine 30 mg ONCE ONCE IVP 12/27/21 05:00 12/27/21 05:01 DC 12/27/21 04:55 30 MG (JOVANA ARMENTA) Vital Signs/I&O 12/27/21 12/27/21 12/27/21 04:58 05:43 06:38 Pulse 43 78 55 Resp 26 18 18 B/P (MAP) 137/114 (122) 149/98 148/77 Pulse Ox 100 100 95 O2 Delivery Room Air Room Air Room Air (JOVANA ARMENTA) Progress Progress Note : Time: 06:08 Progress Note care passed to Dr Armenta at shift change with UA and imaging study results pending (GILLES ERNST MD) Progress Note : Time: 06:29 Progress Note Patient in the room resting quietly. Kidney stone seen on CT. (JOVANA ARMENTA) Diagnostic Imaging Diagonstic Imaging: CT Plain Films/CT/US/NM/MRI: abdomen, pelvis Comments [facility] [place], [place] NAME: DARRELL WALSH [facility] REC#: [id number] PT STATUS: REG ER : 1980 PHYSICIAN: GILLES ERNST MD ADMIT DATE: 12/27/21/ER Draft Date of Exam:12/27/21 CT ABD/PELVIS WO(KIDNEY STONE) PROCEDURE: CT urinary tract, rule out kidney stone. TECHNIQUE: Multiple contiguous axial images were obtained through the abdomen and pelvis without the use of intravenous contrast. Auto Exposure Controls were utilized during the CT exam to meet ALARA standards for radiation dose reduction. INDICATION: Abdominal and testicular pain. FINDINGS: There are no renal calculi. There is mild hydronephrosis on the left. There is a 3 mm calculus in the distal left ureter. The bladder is empty. Right kidney and ureter appear normal. The lung bases are clear. The liver, gallbladder, and bile ducts are normal. Pancreas and spleen are normal. Adrenal glands are not enlarged. Stomach and small bowel appear normal. Colon shows normal stool and gas pattern. Appendix is normal. No free air or free fluid. No intra-abdominal adenopathy. No bony lesions. IMPRESSION: A 3 mm calculus distal left ureter causing mild hydronephrosis. Dictated on workstation # [id number] Dict: 12/27/21 0613 Trans: 12/27/21 0616 ALKA [id number] Interpreted by: MADISON VARGAS MD Electronically signed by: Reviewed: Reviewed by Me Diagonstic Imaging: Xray Plain Films/CT/US/NM/MRI: abdomen, pelvis Comments [facility] [place] [place] NAME: DARRELL WALSH [facility] REC#: [id number] PT STATUS: REG ER : 1980 PHYSICIAN: GILLES ERNST MD ADMIT DATE: 12/27/21/ER Draft Date of Exam:12/27/21 ABDOMEN/KUB 1VIEW INDICATION: Testicular pain. FINDINGS: No calculi are seen overlying the kidneys. The known calculus within the pelvis on the left within the distal ureter is too small to be definitely identified on plain film. There is noted a phlebolith in the pelvis on the right. IMPRESSION: Known distal left ureteral calculus demonstrated on CT is too small to see on KUB. Dictated on workstation # [id number] Dict: 12/27/21626 Trans: 12/27/21 0631 PARAM [id number] Interpreted by: MADISON VARGAS MD Electronically signed by: Reviewed: Reviewed by Me (JOVANA ARMENTA) Departure Impression Primary Impression: Abdominal pain Qualified Codes: R10.84 - Generalized abdominal pain Additional Impression: Ureteral calculus Disposition: 01 HOME, SELF-CARE Condition: Stable Departure-Patient Inst. Decision time for Depature: 06:43 (JOVANA ARMENTA) Referrals: NO,LOCAL PHYSICIAN (PCP) Primary Care Physician SUSIE SALCIDO MD Patient Instructions: Kidney Stones (DC) Add. Discharge Instructions: You have a kidney stone that is skilled nursing passed. Drink lots of fluids to help floated out. Strain your urine to see if you catch the stone to let you know that the symptoms should be improving in the next day or 2. Diclofenac 50 mg 1 tablet every 8 hours. Do not use more than 150 mg in a day. Do not mix diclofenac with other NSAIDs such as ibuprofen, Aleve, naproxen. Tylenol 1000 mg every 8 hours as needed for pain. Flomax once a day to help pass the stone. Ondansetron 1 tablet every 6 hours as needed for nausea or vomiting. Keflex 1 capsule twice a day to help prevent urinary tract infection. Follow-up with Dr. Salcido, urology for help with management of your symptoms. Scripts Diclofenac Sodium (Diclofenac Sodium) 50 Mg Tablet.dr 50 MG PO TID PRN for PAIN-BREAKTHROUGH, #10 TAB 0 Refills Prov: JOVANA ARMENTA 12/27/21 Tamsulosin HCl (Flomax) 0.4 Mg Cap 0.4 MG PO DAILY for 7 Days, #7 CAP 0 Refills Prov: JOVANA ARMENTA 12/27/21 Cephalexin (Cephalexin) 500 Mg Tablet 500 MG PO BID for 7 Days, #14 TAB 0 Refills Prov: JOVANA ARMENTA 12/27/21 Ondansetron (Ondansetron Odt) 4 Mg Tab.rapdis 4 MG PO Q6H PRN for NAUSEA/VOMITING, #8 TAB 0 Refills Prov: JOVANA ARMENTA 12/27/21 Work/School Note: Work Release Form Date Seen in the Emergency Department: Dec 27, 2021 Return to Work: Jan 01, 2022 Restrictions: No Restrictions Copy Copies To 1: SUSIE SALCIDO MD, KATHRYN M MD Dec 27, 2021 04:53 JOVANA ARMENTA Dec 27, 2021 06:29
[2021-12-27] MEDS ORDERED: TAMSULOSIN 0.4 MG (FLOMAX) CAP PO ONE (04:54)
[2021-12-27] MEDS ORDERED: KETOROLAC 30 MG/ML VIAL IVP ONE (05:00)
[2021-12-27] MEDS ORDERED: NS IV 1000 ML 1,000 ML IV SCH (05:00)
[2021-12-27] MEDS ORDERED: GLYCOPYRROLATE 0.2 MG/ML (ROBINUL) 2 ML VIAL IM ONE (05:00)
[2021-12-27 05:02] LABS: BASOPHILS # (AUTO) 0.1 10^3/uL (0.0-0.1); BASOPHILS % (AUTO) 1 % (0-10); EOSINOPHILS # (AUTO) 0.1 10^3/uL (0.0-0.3); EOSINOPHILS % (AUTO) 1 % (0-10); HEMATOCRIT 41 % (40-54); HEMOGLOBIN 14.1 g/dL (13.3-17.7); LYMPHOCYTES # (AUTO) 3.1 10^3/uL (1.0-4.0); LYMPHOCYTES % (AUTO) 22 % (12-44); MEAN CORPUSCULAR HEMOGLOBIN 31 pg (25-34); MEAN CORPUSCULAR HGB CONC 35 g/dL (32-36); MEAN CORPUSCULAR VOLUME 89 fL (80-99); MONOCYTES # (AUTO) 1.1 10^3/uL (0.0-1.0); MONOCYTES % (AUTO) 8 % (0-12); NEUTROPHILS # (AUTO) 9.4 10^3/uL (1.8-7.8); NEUTROPHILS % (AUTO) 68 % (42-75); PLATELET COUNT 338 10^3/uL (130-400); WHITE BLOOD COUNT 13.8 10^3/uL (4.3-11.0)
[2021-12-27 05:20] LABS: POTASSIUM 3.3 MMOL/L (3.6-5.0)
[2021-12-27 05:26] LABS: CREATININE SERUM 1.47 MG/DL (0.60-1.30)
--- NOTE | 2021-12-27 06:16 | Diagnostic Imaging Report ---
PROCEDURE: CT urinary tract, rule out kidney stone. TECHNIQUE: Multiple contiguous axial images were obtained through the abdomen and pelvis without the use of intravenous contrast. Auto Exposure Controls were utilized during the CT exam to meet ALARA standards for radiation dose reduction. INDICATION: Abdominal and testicular pain. FINDINGS: There are no renal calculi. There is mild hydronephrosis on the left. There is a 3 mm calculus in the distal left ureter. The bladder is empty. Right kidney and ureter appear normal. The lung bases are clear. The liver, gallbladder, and bile ducts are normal. Pancreas and spleen are normal. Adrenal glands are not enlarged. Stomach and small bowel appear normal. Colon shows normal stool and gas pattern. Appendix is normal. No free air or free fluid. No intra-abdominal adenopathy. No bony lesions. IMPRESSION: A 3 mm calculus distal left ureter causing mild hydronephrosis. Dictated by: Dictated on workstation # [id number]
--- NOTE | 2021-12-27 06:31 | Diagnostic Imaging Report ---
INDICATION: Testicular pain. FINDINGS: No calculi are seen overlying the kidneys. The known calculus within the pelvis on the left within the distal ureter is too small to be definitely identified on plain film. There is noted a phlebolith in the pelvis on the right. IMPRESSION: Known distal left ureteral calculus demonstrated on CT is too small to see on KUB. Dictated by: Dictated on workstation # [id number]
[2021-12-27] MEDS ORDERED: CEPH500T PO ×2 (06:54→06:55)
[2021-12-27] MEDS ORDERED: ONDA4TAB11 PO ×2 (06:54→06:55)
[2021-12-27] MEDS ORDERED: DICL50TA6 PO ×2 (06:54→06:55)
[2021-12-27] MEDS ORDERED: TMSL.4C PO ×2 (06:54→06:55)
[2021-12-27 07:10] VITALS: BP 163/73
[2021-12-27] MEDS ORDERED: TAMSULOSIN 0.4 MG (FLOMAX) CAP PO SCH (18:00)
== END 2021-12-27 07:10 | disposition home or self-care (01) ==
LOC: EDUNIT# 04:37 → ER 04:39
DX: N13.2 Hydronephrosis with renal and ureteral calculous obstruction (principal)
CPT/HCPCS: 36415; 74018; 74176; 80048; 85025